=== PATIENT | female | born 1950 | race Caucasian/White ===

== ENCOUNTER 2017-06-23 07:01 | Inpatient (IN) ==
--- NOTE | 2017-06-20 22:10 | Discharge Summary ---
<Silvana Gtz - Last Filed: 06/20/17 22:06> Date of Encounter: 06/20/17 - Discharge Diagnosis (1) Status post total replacement of left shoulder Priority: Primary Status: Acute (2) Left rotator cuff tear arthropathy Priority: Primary Status: Acute (3) History of DVT (deep vein thrombosis) Priority: Secondary Status: Chronic (4) Chronic pain Priority: Secondary Status: Chronic Qualifiers: Chronic pain type: chronic pain syndrome Qualified Code(s): G89.4 - Chronic pain syndrome (5) COPD (chronic obstructive pulmonary disease) Priority: Secondary Status: Acute Qualifiers: COPD type: unspecified COPD Qualified Code(s): J44.9 - Chronic obstructive pulmonary disease, unspecified (6) HTN (hypertension) Priority: Secondary Status: Chronic Qualifiers: Hypertension type: essential hypertension Qualified Code(s): I10 - Essential (primary) hypertension (7) DMII (diabetes mellitus, type 2) Priority: Secondary Status: Chronic Qualifiers: Diabetes mellitus complication status: with unspecified complications Diabetes mellitus terminal makeup operator insulin use: unspecified chcf insulin use status Qualified Code(s): E11.8 - Type 2 diabetes mellitus with unspecified complications (8) Obesity Priority: Secondary Status: Chronic Qualifiers: Obesity type: due to excess calories Obesity classification: unspecified obesity classification Serious obesity comorbidity presence: without serious comorbidity Qualified Code(s): E66.09 - Other obesity due to excess calories - Discharge Medications Home Medications: Budesonide/Formoterol 160/4.5 [Symbicort 160/4.5] 2 puff IH BID 06/24/15 [ History] ClonazePAM [Klonopin] 1 mg PO HS 06/24/15 [History] Dexlansoprazole [Dexilant] 60 mg PO DAILY 06/24/15 [History] Gabapentin [Neurontin] 600 mg PO TID 06/24/15 [History] Metoprolol XL (24 HR) Succ [Toprol Xl] 25 mg PO DAILY 06/24/15 [History] Rosuvastatin [Crestor] 40 mg PO HS 06/24/15 [History] Sertraline [Zoloft] 200 mg PO DAILY 06/24/15 [History] Gabapentin [Neurontin] 1,200 mg PO HS 09/17/16 [History] Ipratropium/Albuterol Sulfate [Combivent Respimat Inhal [place]] 2 puff IH QID [History] Lisinopril 2.5 mg PO DAILY 09/17/16 [History] metFORMIN [Glucophage] 500 mg PO BIDWM 09/17/16 [History] Aspirin Enteric Coated [Aspirin EC] 325 mg PO DAILY #21 tablet. 06/20/17 [Rx] OxyCODONE Immed Rel [Roxicodone 5 MG] 5 - 10 mg PO Q6HR PRN #40 tablet 06/20/17 [Rx] Chlorthalidone 25 mg PO DAILY 06/23/17 [History] HYDROcodone/Acet 7.5/325 mg [[place] 7.5-325 mg] 1 tab PO TID PRN 06/23/17 [ History] Allergies/Adverse Reactions: 3 Allergy/AdvReac Type Severity Reaction Status Date / Time No Known Allergies Allergy Verified 06/23/17 07:40 Primary care physician: Wu Noriega MD - Patient Status Disposition: Home, Self-Care Condition: Good - Discharge Instructions Follow Up With: Wu Noriega MD [Primary Care Provider] - - Hospital Course Hospital course: Ms. Rivera is a 66 year old female - Time Spent with Patient Total time spent providing and/or coordinating discharge services: <Stu Rollins - Last Filed: 06/24/17 06:45> Date of Encounter: 06/24/17 Time of Encounter: 06:45 - Discharge Diagnosis (1) Morbid obesity with BMI of 40.0-44.9, adult Priority: Secondary Status: Chronic (2) Status post total replacement of left shoulder Priority: Primary Status: Acute (3) Left rotator cuff tear arthropathy Priority: Primary Status: Chronic (4) History of DVT (deep vein thrombosis) Priority: Secondary Status: Chronic (5) Chronic pain Priority: Secondary Status: Chronic Qualifiers: Chronic pain type: chronic pain syndrome Qualified Code(s): G89.4 - Chronic pain syndrome (6) COPD (chronic obstructive pulmonary disease) Priority: Secondary Status: Chronic Qualifiers: COPD type: unspecified COPD Qualified Code(s): J44.9 - Chronic obstructive pulmonary disease, unspecified (7) HTN (hypertension) Priority: Secondary Status: Chronic Qualifiers: Hypertension type: essential hypertension Qualified Code(s): I10 - Essential (primary) hypertension (8) DMII (diabetes mellitus, type 2) Priority: Secondary Status: Chronic Qualifiers: Diabetes mellitus complication status: with unspecified complications Diabetes mellitus chcf insulin use: unspecified terminal makeup operator insulin use status Qualified Code(s): E11.8 - Type 2 diabetes mellitus with unspecified complications Primary care physician: Wu Noriega MD - Patient Status Functional capacity at discharge: independent ambulation Overall status at discharge: patient is progressing back to baseline - Hospital Course Hospital course: Ms. Rivera is a 66 year old female Status post left total shoulder replacement. The patient had an uneventful postoperative course. They received antibiotics and physical therapy and were discharged in stable condition. There will follow -up in the office in 2 weeks. - Time Spent with Patient Total time spent providing and/or coordinating discharge services:
[2017-06-23] MEDS ORDERED: *HR* Midazolam HCl 2 MG/2 ML VIAL ONE ×2 (07:13→08:23)
[2017-06-23] MEDS ORDERED: Lidocaine -MPF 2% 2 ML VIAL ONE ×2 (07:13→08:23)
[2017-06-23] MEDS ORDERED: *HR* Succinylcholine 200 MG/10 ML VIAL IVP ONE (07:13)
[2017-06-23] MEDS ORDERED: *HR* FentaNYL (PF) 100 MCG/2 ML VIAL ONE (07:13)
[2017-06-23] MEDS ORDERED: Ondansetron 4 MG/2 ML VIAL ONE (07:13)
[2017-06-23] MEDS ORDERED: Dexamethasone 4 MG/ML VIAL ONE (07:13)
[2017-06-23] MEDS ORDERED: *HR* Propofol 200 MG/20 ML VIAL IVP ONE (07:13)
[2017-06-23] MEDS ORDERED: Albuterol 2.5 MG/3 ML NEBULIZER IH ONE (07:18)
[2017-06-23] MEDS ORDERED: CeFAZolin Pre 2,000 MG/100 ML 2,000 MG/100 ML BAG IVPB ONE (07:18)
[2017-06-23] MEDS ORDERED: *HR* Promethazine 25 MG/ML VIAL IVP PRN (07:19)
[2017-06-23] MEDS ORDERED: Ondansetron 4 MG/2 ML VIAL IVP ONE (07:19)
[2017-06-23] MEDS ORDERED: *HR* Labetalol 20 MG/4 ML SYRINGE IVP PRN (07:19)
[2017-06-23] MEDS ORDERED: *HR* Morphine 2 MG/ML SYRINGE IVP PRN (07:19)
[2017-06-23] MEDS ORDERED: *HR* HYDROmorphone (PF) 1 MG/ML SYRINGE IVP PRN ×2 (07:19→10:52)
[2017-06-23] MEDS ORDERED: Dexamethasone 4 MG/ML VIAL IVP ONE (07:19)
[2017-06-23] MEDS ORDERED: Plasma-Lyte A (PH 7.4) 1,000 ML IVC SCH (07:30)
--- NOTE | 2017-06-23 07:41 | History & Physical Report ---
Date of Encounter: 06/23/17 Time of Encounter: 07:41 24 Hour HP Update - Instructions Instructions: If the History and Physical is less than 30 days old and was completed prior to A.M. admission and or procedure and has NOT been updated on calendar day of procedure please complete this update prior to performing procedure. - Update Patient reports changes in Medical Condition: No Changes in examination, assessment, or condition: No Changes in Medication: No Preop tests/diagnostics Reviewed: Yes Surgery Remains Indicated: Yes Consent for Planned Operative Procedure(s) Verified: Yes - Pre-Operative Checklist Preoperative Checklist Indicated: No Prophylactic Antibiotic Ordered: Yes Is VTE Prophylaxis Indicated?: Yes
--- NOTE | 2017-06-23 07:53 | Anesthesia Evaluation PreOp ---
Date of Encounter: 06/23/17 Time of Encounter: 07:51 - Past History Planned Operation: Left total shoulder Cardiac History: CHF (2010), HTN, Hyperlipidemia Pulmonary History: Smoker, COPD EXTRACT PULLER History: Denies Any Significant HX Other Medical History: Renal (hx renal failure in 2013), Diabetes Type II (oral medications only), Other (BMI 41) Anesthesia History: No Prior Anesthetic Complications Alcohol Use: none Drug use: none Medications and Allergies Budesonide/Formoterol 160/4.5 [Symbicort 160/4.5] 2 puff IH BID 06/24/15 [ History] ClonazePAM [Klonopin] 1 mg PO HS 06/24/15 [History] Dexlansoprazole [Dexilant] 60 mg PO DAILY 06/24/15 [History] Gabapentin [Neurontin] 600 mg PO TID 06/24/15 [History] Metoprolol XL (24 HR) Succ [Toprol Xl] 25 mg PO DAILY 06/24/15 [History] Rosuvastatin [Crestor] 40 mg PO HS 06/24/15 [History] Sertraline [Zoloft] 200 mg PO DAILY 06/24/15 [History] Gabapentin [Neurontin] 1,200 mg PO HS 09/17/16 [History] Ipratropium/Albuterol Sulfate [Combivent Respimat Inhal [place]] 2 puff IH QID [History] Lisinopril 2.5 mg PO DAILY 09/17/16 [History] metFORMIN [Glucophage] 500 mg PO BIDWM 09/17/16 [History] Aspirin Enteric Coated [Aspirin EC] 325 mg PO DAILY #21 tablet. 06/20/17 [Rx] OxyCODONE Immed Rel [Roxicodone 5 MG] 5 - 10 mg PO Q6HR PRN #40 tablet 06/20/17 [Rx] Chlorthalidone 25 mg PO DAILY 06/23/17 [History] HYDROcodone/Acet 7.5/325 mg [[place] 7.5-325 mg] 1 tab PO TID PRN 06/23/17 [ History] 3 Allergy/AdvReac Type Severity Reaction Status Date / Time No Known Allergies Allergy Verified 06/23/17 07:40 - Meds/Allergy Pre-op Review Medications Reviewed: Yes Allergies Reviewed: Yes Beta Blockers on Current Med List: Yes If Beta Blockers taken, Date/Time (Last Dose taken): 06-23-17 metoprolol 5:30 Anesthesia Results - Labs Laboratory Tests 06/18/17 06/18/17 06/18/17 15:50 15:50 15:50 WBC 8.9 Hgb 12.7 Hct 40.2 Plt Count 282 PT 10.1 INR 0.9 APTT 29.2 Sodium 138 Potassium 3.7 Chloride 100 Carbon Dioxide 29 BUN 8 Creatinine 0.72 Est GFR ( Amer) > 60 Est GFR (Non-Af Amer) > 60 BUN/Creatinine Ratio 11 - Imaging EKG: report reviewed, image reviewed (SINUS RHYTHM LOW QRS VOLTAGE IN PRECORDIAL LEADS) Anesthesia Exam Last Vital Signs Temp 97.7 F 06/23/17 07:21 Pulse 80 06/23/17 07:21 Resp 18 06/23/17 07:21 BP 139/69 06/23/17 07:21 Pulse Ox 96 06/23/17 07:21 Weight: 108 kg NPO (# of Hours): >> 8 hrs - HEENT Pupil (Motor): Pupils equal, EOMI Mallampati: III Teeth: Edentulous Oral Opening: Greater than 3 - EXTRACT PULLER LOC: Oriented EXTRACT PULLER Motor: Normal RUE, Normal LUE, Normal RLE, Normal LLE, Normal Face - Cardiac Rhythm: Regular Murmur: None - Pulmonary Breath Sounds: bilateral Clear Respiratory Effort: Symmetrical Anesthesia Assess/Plan ASA Score: 3 Modified [place] Scale for Level of Consciousness: Cooperative, oriented, and tranquil Anesthetic Plan: General, Regional Monitoring Plan: Standard Monitors Recovery Plan: PACU
[2017-06-23] MEDS ORDERED: ROPIVACAINE HCL/PF 0.5% 30 ML VIAL ONE (08:13)
[2017-06-23] MEDS ORDERED: Bupivacaine/Clonidine Syringe 1 EACH SYRINGE ONE (08:13)
--- NOTE | 2017-06-23 09:20 | Anesthesia Procedures ---
Date of Encounter: 06/23/17 Time of Encounter: 08:25 Procedures: Anesthesia - Nerve Block Procedure Date: 06/23/17 Time: 08:25 Allergies/Adv Reactions: nka Pre-op Diagnosis: Left Shoulder RC Arthropathy Surgical Procedure: Left Total Shoulder, reverse ball socket Checklist: Correct Patient Identifier, Correct procedure, History checked Correct side: Left Blood Thinner: No Monitor Applied: EKG, BP, Pulse Oximetry Supplemental Oxygen via Nasal Cannula (L/min): 2 Sedation: Versed (mg): 4 Sedation: Fentanyl (mcg): 100 Indication: Post Op Analgesia (per dr. izaguirre) Pre-op Neuro Deficits: No Block Type: Supraclavicular, Other (scp, icb) Catheter placed: No Sterile Technique: Yes Ultrasound used: Yes Anatomy identified: Yes Visual spread of Local: Yes Neuro Stimulation: No Blood on Needle Aspiration: No Smooth Injection of Local: Yes Pain with Injection of Local: No Prep: Chlorhexadine Needle: 22 x 50 mm Stimuplex Local: 0.25% Bupivicaine w/Clonidine 20 mcg/cc (20cc for scp. icb), Ropivacaine (30cc 0.5% for supracvlav) Volume (cc): 30, 10, 10 Number of Attempts: 1 Complications: None/effective block Vitals: Vital Signs/O2 Sat/Glucose, Most Recent Temp Pulse Resp BP Pulse Ox 97.7 F 76 18 107/76 96 06/23/17 07:21 06/23/17 08:35 06/23/17 07:21 06/23/17 08:35 06/23/17 08:35 Blood Glucose* 113 Comments: [facility]
[2017-06-23] MEDS ORDERED: EPHEDrine 50 MG/ML VIAL ONE (09:27)
[2017-06-23] MEDS ORDERED: Water for inj. (sterile) 10 ML IV ONE (09:27)
--- NOTE | 2017-06-23 09:41 | Orthopedic Operative Note ---
Date of procedure: 06/23/17 Pre-op diagnosis: Left Shoulder cuff tear arthropathy Post-op diagnosis: same Procedure: Procedure: Total Shoulder Replacment Reverse, left Estimated blood loss: 100 cc Hardware: Metal and polyethylene replacement: Arthrex small glenoid baseplate, 2 4.5 screws. 1 6.5 screw, 36+4 glenosphere, 6 humeral stem, poly insert 6 Exam Under anesthesia: Full motion no instability Procedural Notes: Grade 4 arthritic changes humeral head and glenoid socket tear of the rotator cuff. Operative procedure: The patient was brought to the operating room and placed on the operating room table. After general anesthesia was administered the operative shoulder was examined. Findings were noted. The patient was placed in the modified beachchair position. All pressure points were padded appropriately. And the head was stabilized in the neutral position. The operative extremity was prepped and draped in the sterile surgical fashion. The patient received IV antibiotics prior to skin incision. A standard deltopectoral approach was made to the operative shoulder. Incision was made to the skin and subcutaneous tissue,hemo stasis was obtained with Bovie cautery. Using careful blunt dissection the cephalic vein was identified and mobilized medially. The deltopectoral interval was developed and the clavipectoral fascia was incised. The subscap was released off the lesser tuberosity and tagged with #2 FiberWire suture subscap was irreparable.. The humerus was dislocated patient noted to have a tear supraspinatus tendon, and the humeral cut was made along the anatomic neck. Patient had grade 4 arthritic changes humeral head. Anterior and posterior Bankart retractors were placed to expose the glenoid. Patient had grade 43 changes glenoid socket. The glenoid guide was seated and the centering hole was made. It was reamed with the appropriate reamer. The small baseplate was seated and secured with ( 2) 4.5 screws and one 6.5 screw. The baseplate was irrigated and dried and the 36+4 Glenosphere was seated and secured with the Garrido taper. The Garrido taper was tested and found to be secure the humerus was redislocated and prepared with the diaphyseal reamers, followed by a broaching process up to the appropriate size 6 in the patient's anatomic version. The metaphyseal reamer was then utilized. Trial reduction found the shoulder to be relocatable. Trial components were removed and the real 6 stem was impacted in place in the patient's anatomic version. Trial reduction found the shoulder to be relocatable and stable with the appropriate 6 Trial component was removed and the real was seated and secured the shoulder was reduced. The shoulder had excellent motion and excellent stability and no evidence of dislocation. The deep tissue was irrigated with pulse irrigation. Shoulder was closed by the PA. The deltopectoral interval was closed with a running #1 PDS suture, subcutaneous tissue was irrigated and closed with 0 PDS suture, the skin was closed with Dermabond. The patient was placed in a sterile dressing, abduction brace and extubated. The patient was then transferred to the recovery room in stable condition. Anesthesia: CATHRYN Surgeon: Stu Rollins Reach Lift Truck Driver: Silvana Gtz Condition: stable Disposition: PACU
--- NOTE | 2017-06-23 10:22 | Anesthesia Evaluation Post Op ---
Date of Encounter: 06/23/17 Time of Encounter: 10:22 - Vital Signs Vital Signs: vss - Airway Airway: Non-obstructed - Cardiovascular Baseline Rhythm - Mental Status Mental Status: Alert & Oriented, Answers Appropriately - Pain Pain Scale used: GrantNoel (Faces) - Nausea Vomiting Nausea Vomiting: Not Present - Hydration Hydration: Ice chips - Discharge PostOp Status: Transfer Patient to floor
[2017-06-23] MEDS ORDERED: Temazepam 15 MG CAPSULE PO PRN (10:52)
[2017-06-23] MEDS ORDERED: MOM Conc 10 ML UD.LIQ PO PRN (10:52)
[2017-06-23] MEDS ORDERED: Ondansetron 4 MG/2 ML VIAL IVP PRN (10:52)
[2017-06-23] MEDS ORDERED: Naloxone 0.4 MG/ML INJ IVP PRN (10:52)
[2017-06-23] MEDS ORDERED: Sennosides 8.6 MG TABLET PO PRN (10:52)
[2017-06-23] MEDS ORDERED: *HR* Dextrose 50 % in Water (Syg) 50 ML SYRINGE IVP PRN (10:52)
[2017-06-23] MEDS ORDERED: D5% in Water 1,000 ML IVC PRN (10:52)
[2017-06-23] MEDS ORDERED: Dextrose Gel 15 GM PO PRN ×2 (10:52)
[2017-06-23] MEDS ORDERED: Lidocaine -MPF 4% 5 ML AMPUL ONE (10:53)
[2017-06-23 10:54] LABS: Hematocrit 36.5 % (35.3-44.9)
[2017-06-23] MEDS: Budesonide/Formoterol 160/4.5 MDI IH SCH ×2 (11:12→22:56)
[2017-06-23] MEDS: Ipratropium/Albuterol Neb 3 ML IH SCH ×3 (11:40→22:56)
[2017-06-23] MEDS: Gabapentin 300 MG CAPSULE PO SCH ×3 (12:18→20:21)
[2017-06-23] MEDS: (Dexlansoprazole [Dexilant] 60 MG) PO SCH (12:18)
[2017-06-23] MEDS: ceFAZolin 2,000 MG in D5% in Water 100 ML IVPB SCH ×2 (12:29→16:50)
[2017-06-23] MEDS: Insulin LISPRO 300 UNITS/3 ML VIAL SQ SCH ×2 (12:30→16:46)
[2017-06-23] MEDS: Ringers Solution, Lactated 1,000 ML IVC SCH (12:30)
[2017-06-23] MEDS: *HR* Metformin 500 MG TABLET PO SCH ×2 (12:30→16:51)
[2017-06-23] MEDS: Metoprolol XL (24 HR) Succ 25 MG TAB.ER.24H PO SCH (12:31)
[2017-06-23] MEDS: *HR* Enoxaparin 30 MG/0.3 ML SYRINGE SQ SCH (16:51)
[2017-06-23] MEDS ORDERED: *HR* Enoxaparin 30 MG/0.3 ML SYRINGE SQ SCH (18:00)
[2017-06-23] MEDS: *HR* OxyCODONE Immed Rel 5 MG TABLET PO PRN (19:18)
[2017-06-23] MEDS ORDERED: Gabapentin 400 MG CAPSULE PO SCH (21:00)
[2017-06-23] MEDS ORDERED: clonazePAM 1 MG TABLET PO SCH (21:00)
[2017-06-23] MEDS ORDERED: Insulin LISPRO 300 UNITS/3 ML VIAL SQ SCH (21:00)
[2017-06-24] MEDS: *HR* OxyCODONE Immed Rel 5 MG TABLET PO PRN ×3 (02:30→12:15)
[2017-06-24] MEDS: Ipratropium/Albuterol Neb 3 ML IH SCH ×2 (04:41→10:50)
[2017-06-24] MEDS: *HR* Enoxaparin 30 MG/0.3 ML SYRINGE SQ SCH (05:05)
[2017-06-24 06:05] LABS: Hematocrit 31.1 % (35.3-44.9)
[2017-06-24 06:18] LABS: Hemoglobin 10.2 g/dL (11.5-15.4)
--- NOTE | 2017-06-24 06:46 | Orthopedics Progress Note ---
Date of Encounter: 06/24/17 Time of Encounter: 06:45 - Assessment and Plan (1) Morbid obesity with BMI of 40.0-44.9, adult Current Visit: Yes Status: Chronic (2) Status post total replacement of left shoulder Current Visit: Yes Status: Acute (3) Left rotator cuff tear arthropathy Current Visit: Yes Status: Chronic (4) History of DVT (deep vein thrombosis) Current Visit: Yes Status: Chronic (5) Chronic pain Current Visit: Yes Status: Chronic Qualifiers: Chronic pain type: chronic pain syndrome Qualified Code(s): G89.4 - Chronic pain syndrome (6) COPD (chronic obstructive pulmonary disease) Current Visit: Yes Status: Chronic Qualifiers: COPD type: unspecified COPD Qualified Code(s): J44.9 - Chronic obstructive pulmonary disease, unspecified (7) HTN (hypertension) Current Visit: Yes Status: Chronic Qualifiers: Hypertension type: essential hypertension Qualified Code(s): I10 - Essential (primary) hypertension (8) DMII (diabetes mellitus, type 2) Current Visit: Yes Status: Chronic Qualifiers: Diabetes mellitus complication status: with unspecified complications Diabetes mellitus terminal worker insulin use: unspecified terminal worker insulin use status Qualified Code(s): E11.8 - Type 2 diabetes mellitus with unspecified complications Subjective Interval history: Patient was seen this morning doing well without complaints. Afebrile vital signs stable. Operative extremity: Neurovascularly intact Dressing clean dry and intact Calves nontender Assessment and plan: Continue with postoperative care Hematocrit 31 discharged today Objective Vital signs: Vital Signs Temp Pulse Resp BP Pulse Ox 06/24/17 05:24 97.9 F 70 18 103/55 99 06/24/17 04:41 19 97 06/24/17 00:40 98.6 F 81 19 96/59 91 06/23/17 22:58 19 93 06/23/17 18:30 97.7 F 79 19 94/58 95 06/23/17 15:11 18 92 06/23/17 13:53 98.1 F 73 16 95/63 95 06/23/17 12:59 97.7 F 73 13 100/68 93 06/23/17 11:52 97.5 F L 65 16 95/59 100 06/23/17 11:42 20 91 06/23/17 11:15 97.8 F 66 14 113/53 96 06/23/17 11:13 20 95 06/23/17 10:47 97.8 F 73 16 98/53 94 06/23/17 10:25 97.9 F 71 18 113/59 95 06/23/17 10:15 71 17 106/70 94 06/23/17 10:05 79 16 105/69 96 06/23/17 09:55 98.2 F 80 14 125/73 94 06/23/17 08:35 76 107/76 96 06/23/17 07:21 97.7 F 80 18 139/69 96 Intake and Output 06/23/17 06/23/17 06/24/17 15:59 23:59 07:59 Intake Total 200 / 200 50 / 50 50 / 50 Output Total 100 / 100 250 / 250 0 / 0 Balance 100 / 100 -200 / -200 50 / 50 Intake: IV Fluids 200 / 200 Ancef Premix 2,000 MG/100 100 / 100 ML 2,000 mg In 100 ml @ 200 mls/hr IVPB PREOP ONE Rx#:[id number] Ancef 2,000 MG In 100 / 100 Dextrose 5% 100 ML @ 200 mls/hr IVPB Q8HR ZAINA Rx#: [id number] Oral 50 / 50 50 / 50 Output: Urine 250 / 250 0 / 0 Estimated Blood Loss 100 / 100 Other: # Voids 1 Weight 108.1 kg Blood Glucose* 149 164 Patient Weight 06/24/17 23:59 Weight 108.1 kg - Labs CBC & BMP: 06/24/17 05:28 Labs: Abnormal lab results Hgb 10.2 g/dL (11.5-15.4) L D 06/24/17 05:28 Hct 31.1 % (35.3-44.9) L 06/24/17 05:28 POC Glucose 164 (58-89) H 06/23/17 21:12 - VTE Documentation of Mechanical Device: Venous foot pump, device Consult Discharge Plan - Plan Referrals: Wu Noriega MD [Primary Care Provider] -
[2017-06-24 07:12] VITALS: BP 103/67
[2017-06-24] MEDS: Insulin LISPRO 300 UNITS/3 ML VIAL SQ SCH (07:50)
[2017-06-24] MEDS: Metoprolol XL (24 HR) Succ 25 MG TAB.ER.24H PO SCH (07:59)
[2017-06-24] MEDS: *HR* Metformin 500 MG TABLET PO SCH (07:59)
[2017-06-24] MEDS: Gabapentin 300 MG CAPSULE PO SCH (07:59)
[2017-06-24] MEDS: (Dexlansoprazole [Dexilant] 60 MG) PO SCH (08:00)
[2017-06-24] MEDS: Ringers Solution, Lactated 1,000 ML IVC SCH (08:01)
[2017-06-24] MEDS: Budesonide/Formoterol 160/4.5 MDI IH SCH (10:50)
--- NOTE | 2017-06-24 11:56 | Event Note ---
Date of Encounter: 06/25/17 Time of Encounter: 11:53 PCR - POD#1 Left TSR-reverse *Chronic pain - On Klonopin and Clonazepam Discharged* D/C plan:.outpatient PT - home today
== END 2017-06-24 12:33 | disposition home or self-care (01) | DRG 483 ==
LOC: SAMDAY 07:01 → 3NENU 10:28
PROVIDERS: ADMIT Orthopaedic Surgery; ATTEND Orthopaedic Surgery

== ENCOUNTER 2020-04-25 12:07 | Inpatient (IN) ==
[2020-04-25 13:07] LABS: Basophils % 0.1 %; Hematocrit 41.4 % (35.3-44.9); Immature Granulocytes % 0.3 % (0-4); Lymphocytes # 0.8 K/mcL (0.6-4.6); Mean Corpuscular HGB Conc 31.4 g/dL (31.6-35.5); Mean Corpuscular Hemoglobin 30.7 pg (28.0-33.3); Mean Corpuscular Volume 97.9 fL (83.0-100.0); Mean Platelet Volume 10.5 fL (9.4-12.4); Monocytes # 0.7 K/mcL (0.0-1.3); Monocytes % 4.3 %; Neutrophils # 13.7 K/mcL (1.6-8.9); Platelet Count 241 K/mcL (140-400); Red Blood Count 4.23 M/mcL (3.82-4.97); Red Cell Distribution Width 13.3 % (11.5-14.5); Segmented Neutrophils % 90.3 %; White Blood Count 15.2 K/mcL (4.3-11.1)
[2020-04-25] MEDS ORDERED: Isovue-370 500 ML BOTTLE IVP ONE (13:13)
[2020-04-25] MEDS ORDERED: Morphine Sulfate 2 MG/ML SYRINGE IVP ONE ×2 (13:14→16:00)
[2020-04-25] MEDS ORDERED: Ondansetron 4 MG/2 ML VIAL IVP ONE (13:18)
[2020-04-25 13:42] LABS: Bilirubin,Urine Negative (Negative); Blood,Urine Negative (Negative); Clarity,Urine Clear (Clear); Color,Urine Light-Yellow (Yellow); Glucose,Urine (UA) Normal (Normal); Ketones,Urine Negative (Negative); Leukocyte Esterase,Urine Negative (Negative); Nitrite,Urine Negative (Negative); Protein,Urine Trace mg/dL (Neg-Trace); Specific Gravity,Urine 1.021 (1.010-1.025); Urobilinogen,Urine Normal (Normal)
[2020-04-25 14:25] LABS: Albumin 4.2 g/dL (3.5-5.7); Albumin/Globulin Ratio 1.3 (1.1-2.2); Bilirubin,Direct 0.1 mg/dL (0.0-0.2); Bilirubin,Indirect 0.3 mg/dL (0.0-1.0); Bilirubin,Total 0.4 mg/dL (0.3-1.0); Calcium 9.3 mg/dL (8.6-10.3); Globulin 3.2 g/dL (2.4-3.5); Potassium 4.1 mEq/L (3.5-5.1); Total Protein 7.4 g/dL (6.4-8.9)
[2020-04-25] MEDS ORDERED: *HR* Heparin 5,000 UNIT/ML VIAL IVP PRN ×2 (16:03)
[2020-04-25] MEDS ORDERED: Piperacillin/Tazobactam 4.5 GM in 0.9 % Sodium Chloride Mini Bag 100 ML IVPB ONE (16:04)
[2020-04-25] MEDS ORDERED: Piperacillin/Tazobactam 3.375 GM in 0.9 % Sodium Chloride Mini Bag 100 ML IVPB ONE (16:06)
[2020-04-25] MEDS: 0.9 % Sodium Chloride 1,000 ML IVC SCH ×2 (16:06→23:13)
[2020-04-25] MEDS ORDERED: Heparin 25,000 UNIT/250 ML D5W 25,000 UNIT/250 ML IV.SOLN IVC SCH (16:15)
[2020-04-25 16:34] LABS: INR 0.9; Prothrombin Time 10.7 Seconds (9.4-12.1)
[2020-04-25 16:36] LABS: Heparin anti-factor XA UFH 0.04 IU/mL (0.30-0.70)
[2020-04-25] MEDS ORDERED: *HR* FentaNYL (PF) 100 MCG/2 ML VIAL ONE (17:20)
[2020-04-25] MEDS ORDERED: *HR* Propofol 200 MG/20 ML VIAL IVP ONE (17:21)
[2020-04-25] MEDS ORDERED: Dexamethasone 4 MG/ML VIAL ONE (17:25)
[2020-04-25] MEDS ORDERED: Lidocaine -MPF 2% 2 ML VIAL ONE (17:25)
[2020-04-25] MEDS ORDERED: *HR* Succinylcholine 200 MG/10 ML VIAL IVP ONE (17:25)
[2020-04-25] MEDS ORDERED: *HR* Rocuronium Bromide 50 MG/5 ML VIAL ONE ×2 (17:25→19:05)
[2020-04-25] MEDS ORDERED: Ondansetron 4 MG/2 ML VIAL ONE (17:25)
[2020-04-25] MEDS ORDERED: Lidocaine HCL 4 ML Topical Solution (Laryng-O-Jet Kit Sterile Pak) TP ONE (17:27)
[2020-04-25] MEDS ORDERED: CefOXitin 1,000 MG VIAL ONE (17:27)
[2020-04-25] MEDS ORDERED: CefOXitin 2,000 MG VIAL ONE (17:34)
[2020-04-25] MEDS ORDERED: Acetaminophen IV 1,000 MG/100 ML BAG ONE (18:13)
[2020-04-25] MEDS ORDERED: cefOXitin 2,000 MG in Water for inj. (sterile) 20 ML IVP ONE (18:38)
[2020-04-25] MEDS ORDERED: *HR* Metoprolol 5 MG/5 ML VIAL IVP ONE (18:55)
[2020-04-25] MEDS ORDERED: *HR* HYDROMORPHONE 2 MG/ML VIAL ONE (19:09)
[2020-04-25] MEDS ORDERED: *HR* Promethazine 25 MG/ML VIAL IVP PRN (19:11)
[2020-04-25] MEDS ORDERED: *HR* Labetalol 20 MG/4 ML SYRINGE IVP PRN (19:11)
[2020-04-25] MEDS ORDERED: Ondansetron 4 MG/2 ML VIAL IVP PRN (19:11)
[2020-04-25] MEDS ORDERED: *HR* HYDROmorphone (PF) 1 MG/ML SYRINGE IVP PRN (19:11)
[2020-04-25] MEDS ORDERED: Albumin Human 5% 12.5 GM/250 ML IV.SOLN ONE (19:23)
[2020-04-25] MEDS ORDERED: Morphine Sulfate 2 MG/ML SYRINGE IVP PRN (20:03)
[2020-04-25] MEDS ORDERED: D5% in Water 1,000 ML IVC PRN (20:05)
[2020-04-25] MEDS ORDERED: *HR* Dextrose 50 % in Water (Vial) 50 ML VIAL IVP PRN (20:05)
[2020-04-25] MEDS ORDERED: Dextrose Gel 15 GM/37.5 ML TUBE PO PRN ×2 (20:05)
[2020-04-25] MEDS ORDERED: *HR* Metoprolol 5 MG/5 ML VIAL IVP PRN (21:10)
[2020-04-25] MEDS: Piperacillin/Tazobactam 3.375 GM in 0.9 % Sodium Chloride Mini Bag 100 ML IVPB SCH (23:13)
[2020-04-26] MEDS ORDERED: Insulin LISPRO 300 UNITS/3 ML VIAL SQ SCH
[2020-04-26 01:34] LABS: Basophils % 0.1 %; Hemoglobin 11.6 g/dL (11.5-15.4); Immature Granulocytes % 0.2 % (0-4); Lymphocytes # 0.4 K/mcL (0.6-4.6); Lymphocytes % 2.2 %; Mean Corpuscular HGB Conc 31.4 g/dL (31.6-35.5); Mean Corpuscular Hemoglobin 30.8 pg (28.0-33.3); Mean Corpuscular Volume 98.1 fL (83.0-100.0); Mean Platelet Volume 10.7 fL (9.4-12.4); Monocytes # 0.4 K/mcL (0.0-1.3); Monocytes % 2.5 %; Neutrophils # 15.7 K/mcL (1.6-8.9); Platelet Count 210 K/mcL (140-400); Red Blood Count 3.77 M/mcL (3.82-4.97); Red Cell Distribution Width 13.5 % (11.5-14.5); White Blood Count 16.5 K/mcL (4.3-11.1)
[2020-04-26 01:53] LABS: Calcium 8.2 mg/dL (8.6-10.3); Potassium 3.6 mEq/L (3.5-5.1)
[2020-04-26] MEDS: Morphine Sulfate 2 MG/ML SYRINGE IVP PRN ×4 (04:14→20:06)
[2020-04-26] MEDS ORDERED: *HR* Heparin 5,000 UNIT/ML VIAL SQ SCH (06:00)
[2020-04-26] MEDS: *HR* Heparin 5,000 UNIT/ML VIAL SQ SCH ×2 (06:31→16:56)
[2020-04-26] MEDS: Insulin LISPRO 300 UNITS/3 ML VIAL SQ SCH ×4 (06:32→17:02)
[2020-04-26] MEDS: Piperacillin/Tazobactam 3.375 GM in 0.9 % Sodium Chloride Mini Bag 100 ML IVPB SCH ×2 (09:30→16:56)
[2020-04-26] MEDS: Pantoprazole 40 MG VIAL IVP SCH (09:31)
[2020-04-26] MEDS: 0.9 % Sodium Chloride 1,000 ML IVC SCH ×2 (14:20→20:40)
[2020-04-27] MEDS: Piperacillin/Tazobactam 3.375 GM in 0.9 % Sodium Chloride Mini Bag 100 ML IVPB SCH ×3 (00:09→16:22)
[2020-04-27] MEDS: Insulin LISPRO 300 UNITS/3 ML VIAL SQ SCH ×5 (00:56→23:53)
[2020-04-27] MEDS: Morphine Sulfate 2 MG/ML SYRINGE IVP PRN ×4 (02:53→16:45)
[2020-04-27] MEDS: Ipratropium/Albuterol Neb 3 ML IH PRN ×2 (02:58→16:33)
[2020-04-27] MEDS: 0.9 % Sodium Chloride 1,000 ML IVC SCH ×2 (03:46→14:45)
[2020-04-27] MEDS: *HR* Heparin 5,000 UNIT/ML VIAL SQ SCH ×2 (04:56→16:23)
[2020-04-27] MEDS: Pantoprazole 40 MG VIAL IVP SCH (07:24)
[2020-04-27] MEDS: Nicotine 14 MG PATCH.TD24 TD SCH (19:31)
[2020-04-27] MEDS: Acetaminophen IV 1,000 MG/100 ML BAG IVPB SCH (19:32)
[2020-04-28] MEDS: Acetaminophen IV 1,000 MG/100 ML BAG IVPB SCH ×5 (00:03→23:47)
[2020-04-28] MEDS: Piperacillin/Tazobactam 3.375 GM in 0.9 % Sodium Chloride Mini Bag 100 ML IVPB SCH ×4 (00:04→23:48)
[2020-04-28] MEDS: 0.9 % Sodium Chloride 1,000 ML IVC SCH (04:02)
[2020-04-28] MEDS: *HR* Heparin 5,000 UNIT/ML VIAL SQ SCH ×2 (05:22→18:34)
[2020-04-28] MEDS: Insulin LISPRO 300 UNITS/3 ML VIAL SQ SCH ×3 (05:54→20:11)
[2020-04-28] MEDS: Fluconazole 400 MG/200 ML 400 MG/200 ML BAG IVPB SCH (08:13)
[2020-04-28] MEDS: Pantoprazole 40 MG VIAL IVP SCH (08:15)
[2020-04-28] MEDS: Nicotine 14 MG PATCH.TD24 TD SCH (08:15)
[2020-04-28] MEDS: Ipratropium/Albuterol Neb 3 ML IH PRN (08:52)
[2020-04-29] MEDS: Acetaminophen IV 1,000 MG/100 ML BAG IVPB SCH ×3 (05:26→17:13)
[2020-04-29] MEDS: *HR* Heparin 5,000 UNIT/ML VIAL SQ SCH ×2 (05:28→17:04)
[2020-04-29] MEDS: Piperacillin/Tazobactam 3.375 GM in 0.9 % Sodium Chloride Mini Bag 100 ML IVPB SCH ×2 (08:22→17:05)
[2020-04-29] MEDS: Fluconazole 400 MG/200 ML 400 MG/200 ML BAG IVPB SCH (08:24)
[2020-04-29] MEDS: Pantoprazole 40 MG VIAL IVP SCH (08:24)
[2020-04-29] MEDS: Insulin LISPRO 300 UNITS/3 ML VIAL SQ SCH ×4 (08:25→20:35)
[2020-04-29] MEDS: Nicotine 14 MG PATCH.TD24 TD SCH (08:26)
[2020-04-29] MEDS ORDERED: Furosemide 40 MG/4 ML VIAL IVP ONE (09:05)
[2020-04-29 09:35] LABS: Hematocrit 36.8 % (35.3-44.9); Hemoglobin 11.9 g/dL (11.5-15.4); Mean Corpuscular HGB Conc 32.3 g/dL (31.6-35.5); Mean Corpuscular Volume 95.8 fL (83.0-100.0); Mean Platelet Volume 9.9 fL (9.4-12.4); Platelet Count 245 K/mcL (140-400); Red Blood Count 3.84 M/mcL (3.82-4.97); Red Cell Distribution Width 13.2 % (11.5-14.5); White Blood Count 9.6 K/mcL (4.3-11.1)
[2020-04-29 09:54] LABS: BUN/Creatinine Ratio 13 (6-26); Blood Urea Nitrogen 7 mg/dL (8-23); Calcium 8.9 mg/dL (8.6-10.3); Carbon Dioxide 29 mEq/L (23-29); Chloride 99 mEq/L (98-107); Glucose 97 mg/dL (70-105); Osmolality,Calculated 284 (280-300); Sodium 138 mEq/L (136-145); eGFR For African Americans > 60 (> 60); eGFR For Non-African Americans > 60 (> 60)
[2020-04-29] MEDS: Ipratropium/Albuterol Neb 3 ML IH SCH ×3 (09:55→21:43)
[2020-04-29] MEDS: 0.9 % Sodium Chloride 1,000 ML IVC SCH ×3 (12:00→14:03)
[2020-04-29] MEDS ORDERED: Potassium Chloride Elixir 20 MEQ/15 ML UDC PO ONE (13:44)
[2020-04-30] MEDS: Acetaminophen IV 1,000 MG/100 ML BAG IVPB SCH ×3 (00:13→11:56)
[2020-04-30] MEDS: Piperacillin/Tazobactam 3.375 GM in 0.9 % Sodium Chloride Mini Bag 100 ML IVPB SCH ×2 (00:36→08:26)
[2020-04-30] MEDS: Ipratropium/Albuterol Neb 3 ML IH SCH ×3 (03:28→16:04)
[2020-04-30] MEDS: *HR* Heparin 5,000 UNIT/ML VIAL SQ SCH (06:24)
[2020-04-30] MEDS: Insulin LISPRO 300 UNITS/3 ML VIAL SQ SCH ×2 (08:12→11:50)
[2020-04-30] MEDS: Fluconazole 400 MG/200 ML 400 MG/200 ML BAG IVPB SCH (08:26)
[2020-04-30] MEDS: Pantoprazole 40 MG VIAL IVP SCH (08:26)
[2020-04-30] MEDS: Nicotine 14 MG PATCH.TD24 TD SCH (08:29)
[2020-04-30 10:43] VITALS: BP 149/82
== END 2020-04-30 17:06 | disposition home or self-care (01) | DRG 330 ==
LOC: EMEROOARM 12:07 → 3ANU 17:50 → EMEROOARM 17:51 → 3ANU 18:26
PROVIDERS: ADMIT Surgery; ATTEND Surgery

== ENCOUNTER 2021-05-05 22:45 | Inpatient (IN) ==
[2021-05-06] MEDS ORDERED: *HR* FentaNYL (PF) 100 MCG/2 ML VIAL IVP ONE ×2 (00:05→01:46)
[2021-05-06] MEDS ORDERED: Ondansetron 4 MG/2 ML VIAL IVP ONE (00:06)
[2021-05-06 01:06] LABS: Bilirubin,Urine Negative (Negative); Blood,Urine Large (Negative); Clarity,Urine Turbid (Clear); Color,Urine Red (Yellow); Glucose,Urine (UA) Normal (Normal); Ketones,Urine Negative (Negative); Leukocyte Esterase,Urine Negative (Negative); Nitrite,Urine Negative (Negative); Protein,Urine >=300 mg/dL (Neg-Trace); Specific Gravity,Urine >= 1.030 (1.010-1.025); Urobilinogen,Urine Normal (Normal)
[2021-05-06 01:08] LABS: Basophils % 0.3 %; Eosinophils % 0.1 %; Hematocrit 43.1 % (35.3-44.9); Immature Granulocytes % 0.3 % (0-4); Lymphocytes % 8.5 %; Mean Corpuscular HGB Conc 32.5 g/dL (31.6-35.5); Mean Corpuscular Hemoglobin 30.9 pg (28.0-33.3); Mean Corpuscular Volume 95.1 fL (83.0-100.0); Monocytes # 0.6 K/mcL (0.0-1.3); Monocytes % 4.7 %; Neutrophils # 10.2 K/mcL (1.6-8.9); Platelet Count 230 K/mcL (140-400); Red Blood Count 4.53 M/mcL (3.82-4.97); Red Cell Distribution Width 13.2 % (11.5-14.5); Segmented Neutrophils % 86.1 %; White Blood Count 11.8 K/mcL (4.3-11.1)
[2021-05-06] MEDS ORDERED: cefTRIAXone 1,000 MG in 0.9 % Sodium Chloride Mini Bag 100 ML IVPB ONE (01:25)
[2021-05-06 01:27] LABS: BUN/Creatinine Ratio 15 (6-26); Blood Urea Nitrogen 13 mg/dL (8-23); Calcium 9.1 mg/dL (8.6-10.3); Carbon Dioxide 26 mEq/L (23-29); Chloride 102 mEq/L (98-107); Glucose 117 mg/dL (70-105); Osmolality,Calculated 289 (280-300); Potassium 3.8 mEq/L (3.5-5.1); Sodium 139 mEq/L (136-145); eGFR For African Americans > 60 (> 60); eGFR For Non-African Americans > 60 (> 60)
[2021-05-06] MEDS ORDERED: Acetaminophen 325 MG TABLET PO PRN (03:35)
[2021-05-06] MEDS ORDERED: Naloxone 0.4 MG/ML INJ IVP PRN (03:35)
[2021-05-06] MEDS ORDERED: Ondansetron 4 MG/2 ML VIAL IVP PRN ×2 (03:35→12:06)
[2021-05-06] MEDS ORDERED: *HR* Dextrose 50 % in Water (Vial) 50 ML VIAL IVP PRN (04:16)
[2021-05-06] MEDS ORDERED: D5% in Water 1,000 ML IVC PRN (04:16)
[2021-05-06] MEDS ORDERED: Dextrose Gel 15 GM/37.5 ML TUBE PO PRN ×2 (04:16)
[2021-05-06] MEDS ORDERED: 0.9 % Sodium Chloride 1,000 ML IVC SCH (06:30)
[2021-05-06 06:40] LABS: Basophils % 0.3 %; Hematocrit 40.7 % (35.3-44.9); Hemoglobin 13.2 g/dL (11.5-15.4); Immature Granulocytes % 0.3 % (0-4); Lymphocytes # 1.1 K/mcL (0.6-4.6); Lymphocytes % 9.4 %; Mean Corpuscular HGB Conc 32.4 g/dL (31.6-35.5); Mean Corpuscular Hemoglobin 30.8 pg (28.0-33.3); Mean Corpuscular Volume 95.1 fL (83.0-100.0); Mean Platelet Volume 10.1 fL (9.4-12.4); Monocytes # 0.6 K/mcL (0.0-1.3); Monocytes % 4.9 %; Neutrophils # 9.9 K/mcL (1.6-8.9); Platelet Count 221 K/mcL (140-400); Red Blood Count 4.28 M/mcL (3.82-4.97); Red Cell Distribution Width 13.1 % (11.5-14.5); Segmented Neutrophils % 85.1 %; White Blood Count 11.6 K/mcL (4.3-11.1)
[2021-05-06 06:57] LABS: BUN/Creatinine Ratio 18 (6-26); Blood Urea Nitrogen 14 mg/dL (8-23); Calcium 8.8 mg/dL (8.6-10.3); Carbon Dioxide 25 mEq/L (23-29); Chloride 104 mEq/L (98-107); Glucose 132 mg/dL (70-105); Osmolality,Calculated 284 (280-300); Potassium 3.8 mEq/L (3.5-5.1); Sodium 136 mEq/L (136-145); eGFR For African Americans > 60 (> 60); eGFR For Non-African Americans > 60 (> 60)
[2021-05-06] MEDS ORDERED: Insulin LISPRO 300 UNITS/3 ML VIAL SUBQ SCH ×2 (07:30→21:00)
[2021-05-06] MEDS ORDERED: *HR* OxyCODONE/APAP 7.5/325 TABLET PO PRN (07:41)
[2021-05-06] MEDS: Insulin LISPRO 300 UNITS/3 ML VIAL SUBQ SCH ×4 (07:54→23:45)
[2021-05-06] MEDS: Nicotine 14 MG PATCH.TD24 TD SCH (07:55)
[2021-05-06] MEDS: Budesonide/Formoterol 160/4.5 1 PUFF INH IH SCH ×2 (08:00→20:05)
[2021-05-06] MEDS: Aspirin Enteric Coated 81 MG Tablet PO SCH (08:19)
[2021-05-06] MEDS: BuPROPion XL (24 HR) 150 MG TABLET PO SCH (08:19)
[2021-05-06] MEDS: Metoprolol XL (24 HR) Succ 25 MG TAB.ER.24H PO SCH (08:20)
[2021-05-06] MEDS ORDERED: clonazePAM 0.5 MG TABLET PO PRN (09:00)
[2021-05-06] MEDS: Gabapentin 400 MG CAPSULE PO SCH ×3 (14:20→20:10)
[2021-05-06] MEDS: *HR* OxyCODONE/APAP 7.5/325 TABLET PO PRN ×2 (15:37→21:44)
[2021-05-06] MEDS ORDERED: Ipratropium/Albuterol Neb 3 ML IH PRN (18:19)
[2021-05-06] MEDS: Nystatin POWDER 30 GM BOTTLE TP SCH (20:11)
[2021-05-06 21:08] LABS: Complement C3 133 mg/dL (87-200)
[2021-05-06 21:34] LABS: Hepatitis B Surface Antigen Nonreactive (Nonreactive)
[2021-05-06 22:03] LABS: Hepatitis C Virus Antibody Nonreactive (Nonreactive)
[2021-05-06 22:04] LABS: Hepatitis B Core IgM Nonreactive (Nonreactive)
[2021-05-07 04:57] LABS: Basophils % 0.2 %; Eosinophils # 0.1 K/mcL (0.0-0.6); Eosinophils % 0.9 %; Hematocrit 35.9 % (35.3-44.9); Immature Granulocytes % 0.4 % (0-4); Lymphocytes # 2.1 K/mcL (0.6-4.6); Mean Corpuscular HGB Conc 30.9 g/dL (31.6-35.5); Mean Corpuscular Hemoglobin 30.5 pg (28.0-33.3); Mean Corpuscular Volume 98.6 fL (83.0-100.0); Mean Platelet Volume 10.2 fL (9.4-12.4); Monocytes # 0.9 K/mcL (0.0-1.3); Neutrophils # 6.5 K/mcL (1.6-8.9); Platelet Count 204 K/mcL (140-400); Red Blood Count 3.64 M/mcL (3.82-4.97); Red Cell Distribution Width 13.6 % (11.5-14.5); Segmented Neutrophils % 67.5 %; White Blood Count 9.6 K/mcL (4.3-11.1)
[2021-05-07 05:03] LABS: Hemoglobin 11.1 g/dL (11.5-15.4)
[2021-05-07 05:12] LABS: Calcium 8.4 mg/dL (8.6-10.3); Magnesium 1.9 mg/dL (1.6-2.6)
[2021-05-07] MEDS: Insulin LISPRO 300 UNITS/3 ML VIAL SUBQ SCH ×3 (05:21→17:10)
[2021-05-07] MEDS: Budesonide/Formoterol 160/4.5 1 PUFF INH IH SCH ×2 (07:51→21:18)
[2021-05-07] MEDS: Aspirin Enteric Coated 81 MG Tablet PO SCH (09:35)
[2021-05-07] MEDS: Metoprolol XL (24 HR) Succ 25 MG TAB.ER.24H PO SCH (09:35)
[2021-05-07] MEDS: Nystatin POWDER 30 GM BOTTLE TP SCH ×3 (09:36→21:27)
[2021-05-07] MEDS: BuPROPion XL (24 HR) 150 MG TABLET PO SCH (09:36)
[2021-05-07] MEDS: Nicotine 14 MG PATCH.TD24 TD SCH (09:36)
[2021-05-07] MEDS: cefTRIAXone 1,000 MG in Water for inj. (sterile) 10 ML IVP SCH (09:37)
[2021-05-07] MEDS: *HR* OxyCODONE/APAP 7.5/325 TABLET PO PRN ×2 (09:47→23:41)
[2021-05-07 11:45] LABS: Hematocrit 37.8 % (35.3-44.9); Hemoglobin 12.4 g/dL (11.5-15.4)
[2021-05-07] MEDS: Nicotine 21 MG PATCH.TD24 TD SCH (12:39)
[2021-05-07] MEDS: Gabapentin 400 MG CAPSULE PO SCH ×3 (15:18→21:07)
[2021-05-07] MEDS ORDERED: Insulin LISPRO 300 UNITS/3 ML VIAL SUBQ SCH (21:00)
[2021-05-08 03:02] LABS: Basophils % 0.3 %; Eosinophils # 0.2 K/mcL (0.0-0.6); Eosinophils % 1.6 %; Hematocrit 32.3 % (35.3-44.9); Immature Granulocytes % 0.3 % (0-4); Lymphocytes # 1.9 K/mcL (0.6-4.6); Lymphocytes % 20.4 %; Mean Corpuscular Hemoglobin 30.8 pg (28.0-33.3); Mean Corpuscular Volume 99.4 fL (83.0-100.0); Mean Platelet Volume 10.6 fL (9.4-12.4); Monocytes # 0.7 K/mcL (0.0-1.3); Monocytes % 7.3 %; Neutrophils # 6.4 K/mcL (1.6-8.9); Platelet Count 179 K/mcL (140-400); Red Blood Count 3.25 M/mcL (3.82-4.97); Red Cell Distribution Width 13.2 % (11.5-14.5); Segmented Neutrophils % 70.1 %; White Blood Count 9.2 K/mcL (4.3-11.1)
[2021-05-08 03:22] LABS: BUN/Creatinine Ratio 18 (6-26); Blood Urea Nitrogen 17 mg/dL (8-23); Calcium 8.3 mg/dL (8.6-10.3); Carbon Dioxide 25 mEq/L (23-29); Chloride 104 mEq/L (98-107); Glucose 116 mg/dL (70-105); Magnesium 1.9 mg/dL (1.6-2.6); Osmolality,Calculated 285 (280-300); Phosphorous 3.6 mg/dL (2.7-4.5); Potassium 4.2 mEq/L (3.5-5.1); Sodium 136 mEq/L (136-145); eGFR For African Americans > 60 (> 60); eGFR For Non-African Americans > 60 (> 60)
[2021-05-08 03:24] LABS: % Iron Saturation 6 % (15-50); Iron 20 mcg/dL (50-170); Transferrin 230 mg/dL (203-362)
[2021-05-08 03:42] LABS: Ferritin 53 ng/mL (10-120)
[2021-05-08 03:46] LABS: Folate 5.6 ng/mL (3.0-16.0)
[2021-05-08] MEDS: Budesonide/Formoterol 160/4.5 1 PUFF INH IH SCH (07:32)
[2021-05-08] MEDS ORDERED: Iron Sucrose Complex 400 MG in 0.9 % Sodium Chloride 250 ML IVPB ONE (07:45)
[2021-05-08] MEDS: cefTRIAXone 1,000 MG in Water for inj. (sterile) 10 ML IVP SCH (08:50)
[2021-05-08] MEDS: Nicotine 21 MG PATCH.TD24 TD SCH (08:51)
[2021-05-08] MEDS: Nystatin POWDER 30 GM BOTTLE TP SCH ×2 (08:52→13:33)
[2021-05-08] MEDS: Aspirin Enteric Coated 81 MG Tablet PO SCH (08:52)
[2021-05-08] MEDS: Metoprolol XL (24 HR) Succ 25 MG TAB.ER.24H PO SCH (08:53)
[2021-05-08] MEDS: BuPROPion XL (24 HR) 150 MG TABLET PO SCH (08:53)
[2021-05-08] MEDS ORDERED: Multivit/Ca/Min/Fe/FA 1 TAB TABLET PO SCH (09:00)
[2021-05-08] MEDS: Insulin LISPRO 300 UNITS/3 ML VIAL SUBQ SCH ×2 (09:10→13:33)
[2021-05-08] MEDS: *HR* OxyCODONE/APAP 7.5/325 TABLET PO PRN (11:46)
[2021-05-08 12:39] LABS: Hematocrit 35.3 % (35.3-44.9); Hemoglobin 10.8 g/dL (11.5-15.4)
[2021-05-08] MEDS: Gabapentin 400 MG CAPSULE PO SCH (13:32)
[2021-05-08 14:35] VITALS: BP 101/53
== END 2021-05-08 16:40 | disposition home or self-care (01) | DRG 690 ==
LOC: EMEROOARM 22:45 → 3ANU 22:45 → SUATTDRO 05-06 03:53 → 3ANU 05-06 05:19
PROVIDERS: ADMIT Internal Medicine; ATTEND Internal Medicine